=== PATIENT | female | born 1940 | race Asian ===

== ENCOUNTER 2018-05-15 18:22 | Emergency (ER) | payer MEDICAID ==
[~2018-05-15] VITALS: Ht 152.4 cm; Wt 88.9 kg
[~2018-05-15 18:22] MED LIST: AMLO5TAB4 PO; ASPI81EC97 PO; CALC1CAP PO; FAMO20TA12 PO; HYDR12.5 PO
[2018-05-15 18:27] VITALS: BP 155/91
--- NOTE | 2018-05-15 18:33 | NUR ---
PT AMBULATED TO ER BED 02
--- NOTE | 2018-05-15 18:34 | NUR ---
77Y/F BIB SELF C/O LT EYEBROW LACERATION S/P FALL FROM LACERATION; DENIES LOC, DIZZINESS OR N/V. PT STATES " SHE FELL FROM A LADDER EARLIER TODAY". PT IS AAOX4; EVEN AND STEADY GAIT; BED DOWN; BEDRAIL UP X 1; ER MD AWARE AND NOTIFIED OF PT STATUS. HX; HTN RX; HYDROCHOLOTHIAZIDE, AMLOPIDEIN, ASA
--- NOTE | 2018-05-15 19:10 | NUR ---
RECEIVED REPORT FROM JIM SANCHEZ. TRANSFER OF CARE AT THIS TIME.
--- NOTE | 2018-05-15 19:12 | NUR ---
PATIENT RESTING AT THIS TIME. NO SIGNS OF DISTRESS.
[2018-05-15] MEDS ORDERED: NEOMYCIN/POLYMYXIN/BACITRACIN 0.9 GM/1 PKT TP ONE (20:05)
[2018-05-15] MEDS ORDERED: LIDOCAINE/EPI MPF 1%1:200000 30 ML VIAL INJ ONE (20:05)
--- NOTE | 2018-05-15 21:24 | NUR ---
AWAITING MD PAPERWORK FROM DR. REAVES.
--- NOTE | 2018-05-15 21:25 | NUR ---
AWAITING ER MD FOR LAC REPAIR.
--- NOTE | 2018-05-15 22:29 | NUR ---
BACITRACIN APPLIED TO PT WOUND ON L FOREHEAD, WITH NON ADHERENT GAUZE PAD AND BANDAID APPLIED OVER WOUND.
[2018-05-15 22:45] VITALS: BP 142/82
--- NOTE | 2018-05-15 22:45 | NUR ---
Patient discharged with v/s stable. Written and verbal after care instructions given and explained. Patient alert, oriented and verbalized understanding of instructions. Ambulatory with steady gait. All questions addressed prior to discharge. ID band removed. Patient advised to follow up with PMD. Rx of BACITRACIN 500U/G given. Patient educated on indication of medication including possible reaction and side effects. Opportunity to ask questions provided and answered.
== END 2018-05-15 22:45 | disposition home or self-care (01) ==
LOC: MED 18:22
DX: S01.112A Laceration without foreign body of left eyelid and periocular area, initial encounter (principal); S40.012A Contusion of left shoulder, initial encounter; I10 Essential (primary) hypertension; Z79.899 Other long term (current) drug therapy; W11.XXXA Fall on and from ladder, initial encounter; Y93.89 Activity, other specified; Y92.89 Other specified places as the place of occurrence of the external cause; Y99.8 Other external cause status
CPT/HCPCS: 12011; 70450; 73030; 90471; 90715; 99284; J2001; Q0092

== ENCOUNTER 2019-10-11 09:22 | Emergency (ER) | payer MEDICAID, OTHER ==
[~2019-10-11] VITALS: Ht 154.9 cm; Wt 52.2 kg
[~2019-10-11 09:22] MED LIST changes: -AMLO5TAB4 PO; +AMLO5TAB6 PO
[2019-10-11 09:31] VITALS: BP 151/79
--- NOTE | 2019-10-11 09:42 | NUR ---
Patient ambulated to bed 3. RN evaluating patient at bedside.
--- NOTE | 2019-10-11 10:00 | NUR ---
Right sided headache associated with right sided chest pain, right arm pain, right leg pain and neck pain for 1 month and getting worse since last night. DENIES N/V/D; SKIN IS PINK/WARM/DRY; AWAKE, ALERT AND CLEAR SPEECH. ABLE TO FOLLOW COMMANDS. LUNGS CLEAR BL; HR EVEN AND REGULAR; PT DENIES ANY FEVER, SOB, OR COUGH AT THIS TIME; PATIENT STATES PAIN OF 8/10 AT THIS TIME; PATIENT POSITIONED FOR COMFORT; HOB ELEVATED; BEDRAILS UP X2; BED DOWN. ER MD MADE AWARE OF PT STATUS.
--- NOTE | 2019-10-11 10:14 | NUR ---
Called code brain.
--- NOTE | 2019-10-11 10:18 | NUR ---
CT AT BEDSIDE LAURA FERREIRA AND EMT JACKSONU TO CT WITH PT.
--- NOTE | 2019-10-11 10:20 | NUR ---
PT LEFT WITH JHON SANCHEZ AND JEWELRY ESTIMATOR FOR CT.
--- NOTE | 2019-10-11 10:30 | NUR ---
PT CAME BACK TO ROOM 3.
[2019-10-11 10:45] LABS: BASOPHILS # (AUTO) 0.2 K/uL (0.00-0.22); BASOPHILS % (AUTO) 2.1 % (0.0-2.0); EOSINOPHILS # (AUTO) 0.3 K/uL (0-0.4); EOSINOPHILS % (AUTO) 2.2 % (0.0-4.0); HEMATOCRIT 30.7 % (36-48); HEMOGLOBIN 10.6 g/dL (12.0-16.0); LYMPHOCYTES # (AUTO) 2.1 K/uL (2.5-16.5); LYMPHOCYTES % (AUTO) 18.5 % (20.5-51.1); MEAN CORPUSCULAR HEMOGLOBIN 32 pg (27-31); MEAN CORPUSCULAR HGB CONC 35 g/dL (33-37); MONOCYTES # (AUTO) 0.5 K/uL (0.8-1.0); MONOCYTES % (AUTO) 4.6 % (1.7-9.3); NEUTROPHILS # (AUTO) 8.4 K/uL (1.8-7.7); NEUTROPHILS % (AUTO) 72.6 % (42.2-75.2); PLATELET COUNT (AUTO) 341 K/uL (140-450); RED BLOOD CELL COUNT(AUTO) 3.27 MIL/uL (4.20-5.40); RED CELL DISTRIBUTION WIDTH 12.8 % (11.6-13.7); WHITE BLOOD COUNT (AUTO) 11.6 K/uL (4.8-10.8)
[2019-10-11 11:02] LABS: PROTHROMBIN TIME 9.9 secs (10.8-13.4)
--- NOTE | 2019-10-11 11:26 | NUR ---
[facility] at bedside for transport to [facility].
--- NOTE | 2019-10-11 11:30 | NUR ---
called [facility] [phone] for report.
--- NOTE | 2019-10-11 11:31 | NUR ---
report given to [facility] transportation team.
[2019-10-11 11:33] LABS: ALBUMIN 3.6 g/dL (3.4-5.0); ANION GAP 9.4 (8-16); ASPARTATE AMINOTRANSFERASE 36 U/L (15-37); CARBON DIOXIDE 29.2 mmol/L (21-32); CHLORIDE 105 mmol/L (98-107); CREATININE 0.8 mg/dL (0.6-1.3); GLUCOSE 96 mg/dL (74-106); POTASSIUM 3.6 mmol/L (3.5-5.1); SODIUM SERUM 140 mmol/L (136-145); TOTAL BILIRUBIN 0.4 mg/dL (0.0-1.0); UREA NITROGEN, BLOOD 17 mg/dL (7-18)
[2019-10-11 11:35] VITALS: BP 150/86
--- NOTE | 2019-10-11 11:35 | NUR ---
pt left unit with [facility].
== END 2019-10-11 11:35 | disposition short-term general hospital (02) ==
LOC: MED 09:22
DX: I63.9 Cerebral infarction, unspecified (principal); I10 Essential (primary) hypertension; Z79.82 Long term (current) use of aspirin; Z79.899 Other long term (current) drug therapy
CPT/HCPCS: 36415; 70450; 71045; 80053; 82948; 84484; 85025; 85610; 85730; 93005; 99291; Q0092

== ENCOUNTER 2019-12-30 00:55 | Emergency (ER) | payer MEDICAID ==
[~2019-12-30] VITALS: Ht 157.5 cm; Wt 63.5 kg
[2019-12-30 00:58] VITALS: BP 169/100
--- NOTE | 2019-12-30 00:58 | NUR ---
PT TERRA BLS TO ER BED 07
--- NOTE | 2019-12-30 01:03 | NUR ---
PT AMBULATED TO BED 7 FROM [facility] WITH STEADY GAIT
--- NOTE | 2019-12-30 01:07 | NUR ---
79 Y/O FEMALE BIB AMBULANCE C/O PT TOOK BP AT HOME AND STATED IT WAS HIGH. BP IN TRAIGE WAS 169/100. HR 81. PT STATES TAKES BP Q30MIN AT HOME REGULARY AND THAT HER SON IS IN THE HOSPITAL, SO THAT HAS BEEN A STRESSOR FOR PT. DENIES N/V/D; SKIN IS PINK/WARM/DRY; AAOX4 WITH EVEN AND STEADY GAIT; HR EVEN AND REGULAR; PT DENIES ANY FEVER, CP, SOB, OR COUGH AT THIS TIME; PATIENT STATES PAIN OF 0/10 AT THIS TIME; PATIENT POSITIONED FOR COMFORT; HOB ELEVATED; BEDRAILS UP X2; BED DOWN AND LOCKED. ER MD MADE AWARE OF PT STATUS. MEDICAL HX: HTN/STROKE/PEPTIC ULCER NKA
--- NOTE | 2019-12-30 01:34 | NUR ---
AT BEDSIDE EXAMINING PT
[2019-12-30 02:03] VITALS: BP 139/77
--- NOTE | 2019-12-30 02:03 | NUR ---
Patient discharged with v/s stable. Written and verbal after care instructions given and explained. Patient verbalized understanding. Ambulatory with steady gait. All questions addressed prior to discharge. Advised to follow up with PMD.
== END 2019-12-30 02:03 | disposition home or self-care (01) ==
LOC: MED 00:55
DX: I10 Essential (primary) hypertension (principal); Z79.899 Other long term (current) drug therapy
CPT/HCPCS: 93005; 99283